=== PATIENT | female | born 1970 | race Caucasian/White ===

== ENCOUNTER 2024-09-03 10:55 | Emergency (ER) | payer OTHER ==
[~2024-09-03] VITALS: Ht 177.8 cm; Wt 95.3 kg
[2024-09-03 11:00] VITALS: PULSE 65; RESP 17; TEMP 98.5; O2SAT 100
== END 2024-09-03 11:45 | disposition home or self-care (01) ==
LOC: ER 11:04
DX: R00.2 Palpitations (principal); I10 Essential (primary) hypertension
CPT/HCPCS: 93005; 99282